=== PATIENT | female | born 1955 | race Two or more races ===

== ENCOUNTER 2017-10-22 07:50 | Emergency (ER) | payer MEDICAID ==
[~2017-10-22] VITALS: Ht 149.9 cm; Wt 64.9 kg
[2017-10-22] MEDS ORDERED: SODIUM CHLORIDE 0.9% 1,000 ML IV ONE (08:32)
[2017-10-22] MEDS ORDERED: PROMETHAZINE HCL 25 MG/ML 1ML ONE (08:43)
[2017-10-22] MEDS ORDERED: PROMETHAZINE HCL 25 MG/ML 1ML IV PRN (08:45)
[2017-10-22] MEDS ORDERED: KETOROLAC TROMETH 30 MG/ML 1ML VIAL IV ONE (08:45)
[2017-10-22 08:50] LABS: Basophils # (auto) 0 uL; Basophils % (auto) 0.5 % (0.0-2.0); Eosinophils # (auto) 0 uL; Eosinophils % (auto) 0.8 % (0.0-7.0); Hematocrit 42.4 % (36.0-46.0); Hemoglobin 14.2 g/dL (12.2-16.2); Lymphocytes # (auto) 1.1 uL; Lymphocytes % (auto) 22.6 % (10.0-50.0); Mean Corpuscular Hemoglobin 29.6 pg (28.0-32.0); Mean Corpuscular Hgb Conc. 33.5 g/dL (32.0-36.0); Mean Corpuscular Volume 88.5 fL (80.0-100.0); Monocytes # (auto) 0.7 uL; Neutrophils # (auto) 2.9 uL; Neutrophils % (auto) 61.1 % (37.0-80.0); Nucleated Red Blood Cells % 0.2 %; Platelet Count (auto) 238 10^3/uL (140-450); Red Cell Distribution Width 13.2 % (11.8-14.3); White Blood Cell 4.8 10^3/uL (4.4-10.8)
[2017-10-22 09:03] LABS: Albumin 3.5 g/dL (3.4-5.0); Calcium 7.9 mg/dL (8.5-10.1); Magnesium 1.6 mg/dL (1.6-2.6)
[2017-10-22 09:12] LABS: Urine Bacteria NONE SEEN /hpf (None Seen); Urine Blood Negative /uL (Negative); Urine WBC 3 /hpf (0 - 5)
[2017-10-22 09:24] LABS: Total Protein 6.5 g/dL (6.4-8.2)
[2017-10-22 09:43] LABS: BUN/Creatinine Ratio 14.5
[2017-10-22] MEDS ORDERED: POTASSIUM CHL 20 Meq TABLET PO ONE (11:30)
[2017-10-22 12:00] VITALS: BP 125/75
== END 2017-10-22 12:02 | disposition home or self-care (01) ==
LOC: ER 07:50
DX: K76.0 Fatty (change of) liver, not elsewhere classified (principal); E03.9 Hypothyroidism, unspecified; E87.6 Hypokalemia; I10 Essential (primary) hypertension; E11.9 Type 2 diabetes mellitus without complications; R91.8 Other nonspecific abnormal finding of lung field
CPT/HCPCS: 36415; 71046; 74176; 80053; 81001; 83690; 83735; 84443; 85025; 96361; 96374; 96375; 99285; J1885; J2550; J7030

== ENCOUNTER 2018-01-08 21:36 | Inpatient (IN) | payer MEDICAID ==
[~2018-01-08] VITALS: Ht 149.9 cm; Wt 66.3 kg
[2018-01-08 22:36] LABS: Basophils # (auto) 0 uL; Basophils % (auto) 0.4 % (0.0-2.0); Eosinophils # (auto) 0 uL; Eosinophils % (auto) 0.2 % (0.0-7.0); Hematocrit 42.4 % (36.0-46.0); Hemoglobin 14.2 g/dL (12.2-16.2); Lymphocytes # (auto) 1.1 uL; Lymphocytes % (auto) 10.3 % (10.0-50.0); Mean Corpuscular Hemoglobin 29.2 pg (28.0-32.0); Mean Corpuscular Hgb Conc. 33.4 g/dL (32.0-36.0); Mean Corpuscular Volume 87.4 fL (80.0-100.0); Monocytes # (auto) 1.2 uL; Monocytes % (auto) 11.6 % (0.0-12.0); Neutrophils # (auto) 8.3 uL; Neutrophils % (auto) 77.5 % (37.0-80.0); Nucleated Red Blood Cells % 0.1 %; Platelet Count (auto) 270 10^3/uL (140-450); Red Blood Cells 4.85 10^6/uL (4.0-5.20); Red Cell Distribution Width 13.2 % (11.8-14.3); White Blood Cell 10.7 10^3/uL (4.4-10.8)
[2018-01-08 22:47] LABS: Urine Bacteria MANY /hpf (None Seen); Urine Blood Negative /uL (Negative); Urine Budding Yeast OCCASIONAL /hpf (None Seen); Urine Specific Gravity 1.034 (1.001-1.035); Urine WBC 74 /hpf (0 - 5); Urine WBC Clumps PRESENT /hpf (None Seen)
[2018-01-08 22:51] LABS: Alanine Aminotransferase 24 U/L (13-56); Albumin 3.3 g/dL (3.4-5.0); Anion Gap 10 (5-15); Aspartate Aminotransferase 23 U/L (15-37); BUN/Creatinine Ratio 12.1; Blood Urea Nitrogen 11 mg/dL (7-18); Calcium 8.9 mg/dL (8.5-10.1); Carbon Dioxide 25 mmol/L (21-32); Chloride 90 mmol/L (98-107); GFR African American 81 mL/min; GFR Non-African American 67 mL/min; Magnesium 2.3 mg/dL (1.6-2.6); Potassium 4.2 mmol/L (3.5-5.1); Sodium 125 mmol/L (136-145)
[2018-01-08 22:54] LABS: Bilirubin, Total 1.8 mg/dL (0.2-1.0)
[2018-01-08 22:56] LABS: Alkaline Phosphatase 205 U/L (45-117); Glucose 489 mg/dL (74-106)
[2018-01-08 23:21] LABS: INR 1.05 (0.9-1.15); Prothrombin Time 11.2 sec (9.27-12.13)
[2018-01-09] MEDS ORDERED: SODIUM CHLORIDE 0.9% 1,000 ML IV ONE (00:30)
[2018-01-09] MEDS ORDERED: InsuLIN REG 1unit/0.01ml Soln (100units/ml) SC ONE (02:15)
[2018-01-09] MEDS ORDERED: TEMAZEPAM 15 MG CAP PO PRN (03:00)
[2018-01-09] MEDS ORDERED: HYDROcodone-ACET 5/325MG TAB PO PRN (03:00)
[2018-01-09] MEDS ORDERED: cefTRIAXone 1GM/10ml IVPUSH 10 ML IV ONE (03:00)
[2018-01-09] MEDS ORDERED: DEXTROSE (50%) 50ML SYRG IV PRN (03:00)
[2018-01-09] MEDS ORDERED: SODIUM CHLORIDE 0.9% 1,000 ML IV SCH (04:00)
[2018-01-09] MEDS: ACCU-CHEK COMFORT CURVE STRIP VI SCH ×5 (04:00→20:08)
[2018-01-09] MEDS: cefTRIAXone 1GM/10ml IVPUSH 10 ML IV SCH (06:00)
[2018-01-09] MEDS: InsuLIN REG 1unit/0.01ml Soln (100units/ml) SC SCH ×5 (06:30→20:01)
[2018-01-09 09:00] VITALS: BP 129/64
[2018-01-09] MEDS: ACETAMINOPHEN 325 MG TAB PO PRN ×3 (09:37→18:48)
[2018-01-09] MEDS: FAMOTIDINE 20 MG TAB PO SCH ×2 (09:38→20:01)
[2018-01-09] MEDS: HCTZ 25 MG TAB PO SCH (09:38)
[2018-01-09] MEDS: ENOXAPARIN SOD 40 MG/0.4 ML SYRINGE SC SCH (09:38)
[2018-01-09] MEDS: SODIUM CHLORIDE 0.9% 1,000 ML IV SCH ×2 (09:45→16:25)
[2018-01-09 10:00] VITALS: BP 129/64
[2018-01-09 13:00] VITALS: BP 121/60
[2018-01-09] MEDS: ONDANSETRON HCL 4 MG/2 ML VIAL IV PRN ×2 (14:13→23:11)
[2018-01-09] MEDS ORDERED: METF-370 PO (15:33)
[2018-01-09] MEDS ORDERED: LEVO25TA6 PO (15:34)
[2018-01-09] MEDS ORDERED: INSLANTI SC (15:34)
[2018-01-09 16:30] VITALS: BP 137/76
[2018-01-09 22:00] VITALS: BP 139/72
[2018-01-10] MEDS: InsuLIN REG 1unit/0.01ml Soln (100units/ml) SC SCH ×5 (00:15→16:35)
[2018-01-10] MEDS: ACCU-CHEK COMFORT CURVE STRIP VI SCH ×5 (00:16→16:35)
[2018-01-10] MEDS: SODIUM CHLORIDE 0.9% 1,000 ML IV SCH ×3 (00:37→08:30)
[2018-01-10 04:55] VITALS: BP 128/76
[2018-01-10] MEDS: cefTRIAXone 1GM/10ml IVPUSH 10 ML IV SCH (05:05)
[2018-01-10 05:42] LABS: Basophils # (auto) 0 uL; Basophils % (auto) 0.6 % (0.0-2.0); Eosinophils # (auto) 0.1 uL; Eosinophils % (auto) 0.8 % (0.0-7.0); Hematocrit 36.7 % (36.0-46.0); Hemoglobin 12.4 g/dL (12.2-16.2); Lymphocytes # (auto) 1.7 uL; Lymphocytes % (auto) 25.9 % (10.0-50.0); Mean Corpuscular Hemoglobin 29.4 pg (28.0-32.0); Mean Corpuscular Hgb Conc. 33.9 g/dL (32.0-36.0); Mean Corpuscular Volume 86.9 fL (80.0-100.0); Monocytes # (auto) 0.9 uL; Monocytes % (auto) 13.7 % (0.0-12.0); Neutrophils # (auto) 3.9 uL; Platelet Count (auto) 273 10^3/uL (140-450); Red Blood Cells 4.22 10^6/uL (4.0-5.20); Red Cell Distribution Width 13.1 % (11.8-14.3); White Blood Cell 6.7 10^3/uL (4.4-10.8)
[2018-01-10 06:07] LABS: Potassium 4.1 mmol/L (3.5-5.1)
[2018-01-10 06:10] LABS: Albumin 2.4 g/dL (3.4-5.0); BUN/Creatinine Ratio 13.7
[2018-01-10 06:14] LABS: Bilirubin, Total 0.7 mg/dL (0.2-1.0); Total Protein 6.3 g/dL (6.4-8.2)
[2018-01-10] MEDS: FAMOTIDINE 20 MG TAB PO SCH (08:21)
[2018-01-10] MEDS: HCTZ 25 MG TAB PO SCH (08:24)
[2018-01-10] MEDS: ENOXAPARIN SOD 40 MG/0.4 ML SYRINGE SC SCH (08:25)
[2018-01-10 13:00] VITALS: BP 133/76
[2018-01-10] MEDS ORDERED: INSLANTI SC (14:21)
[2018-01-10] MEDS ORDERED: CIPR500S2 PO (14:22)
[2018-01-10] MEDS ORDERED: METF-370 PO (14:23)
== END 2018-01-10 16:35 | disposition home or self-care (01) | DRG 463 ==
LOC: ER 21:36 → OVERFLOW 21:37 → WEST WING 01-09 08:55
PROVIDERS: ADMIT Nurse Practitioner; ATTEND Internal Medicine
DX: N12 Tubulo-interstitial nephritis, not specified as acute or chronic (principal); E43 Unspecified severe protein-calorie malnutrition; E10.65 Type 1 diabetes mellitus with hyperglycemia; E87.1 Hypo-osmolality and hyponatremia; I10 Essential (primary) hypertension; Z90.49 Acquired absence of other specified parts of digestive tract; Z90.89 Acquired absence of other organs; Z68.29 Body mass index [BMI] 29.0-29.9, adult
CPT/HCPCS: 36415; 71045; 80053; 81001; 82962; 83036; 83735; 83880; 84443; 84484; 85025; 85610; 85730; 96361; 96372; 96374; J1815; J2405

== ENCOUNTER 2018-06-10 14:28 | Emergency (ER) | payer MEDICAID ==
[~2018-06-10] VITALS: Ht 147.3 cm; Wt 67.1 kg
[~2018-06-10 14:28] MED LIST: CIPR500S2 PO; INSLANTI SC; LEVO25TA6 PO; METF-370 PO
[2018-06-10 16:18] VITALS: BP 156/99
== END 2018-06-10 18:18 | disposition home or self-care (01) ==
LOC: ER 14:31
DX: R04.0 Epistaxis (principal); Z48.00 Encounter for change or removal of nonsurgical wound dressing; E11.9 Type 2 diabetes mellitus without complications; I10 Essential (primary) hypertension; E07.9 Disorder of thyroid, unspecified; Z79.4 Long term (current) use of insulin; Z91.018 Allergy to other foods; Z79.899 Other long term (current) drug therapy; Z90.49 Acquired absence of other specified parts of digestive tract

== ENCOUNTER 2018-06-12 12:59 | Emergency (ER) | payer MEDICAID ==
[~2018-06-12] VITALS: Ht 147.3 cm; Wt 67.1 kg
[2018-06-12] MEDS ORDERED: LORazepam 0.5 MG TAB PO ONE (13:30)
[2018-06-12 14:05] LABS: Basophils # (auto) 0 uL; Basophils % (auto) 0.7 % (0.0-2.0); Eosinophils # (auto) 0.1 uL; Eosinophils % (auto) 1.9 % (0.0-7.0); Hematocrit 40.6 % (36.0-46.0); Hemoglobin 13.2 g/dL (12.2-16.2); Lymphocytes % (auto) 32.5 % (10.0-50.0); Mean Corpuscular Hemoglobin 28.6 pg (28.0-32.0); Mean Corpuscular Hgb Conc. 32.6 g/dL (32.0-36.0); Mean Corpuscular Volume 87.5 fL (80.0-100.0); Monocytes # (auto) 0.4 uL; Monocytes % (auto) 6.4 % (0.0-12.0); Neutrophils # (auto) 3.6 uL; Neutrophils % (auto) 58.5 % (37.0-80.0); Platelet Count (auto) 326 10^3/uL (140-450); Red Blood Cells 4.64 10^6/uL (4.0-5.20); Red Cell Distribution Width 13.2 % (11.8-14.3); White Blood Cell 6.2 10^3/uL (4.4-10.8)
[2018-06-12 14:27] LABS: INR 1.03 (0.9-1.15); Partial Thromboplastin Time 25.2 sec (23.78-33.04)
[2018-06-12 14:31] LABS: Alanine Aminotransferase 25 U/L (13-56); Anion Gap 8 (5-15); Aspartate Aminotransferase 17 U/L (15-37); BUN/Creatinine Ratio 17.7; Blood Urea Nitrogen 11 mg/dL (7-18); Calcium 8.2 mg/dL (8.5-10.1); Carbon Dioxide 29 mmol/L (21-32); Chloride 100 mmol/L (98-107); GFR African American 126 mL/min; GFR Non-African American 104 mL/min; Glucose 214 mg/dL (74-106); Potassium 3.2 mmol/L (3.5-5.1); Sodium 137 mmol/L (136-145)
[2018-06-12 14:35] LABS: Alkaline Phosphatase 109 U/L (45-117); Bilirubin, Total 0.9 mg/dL (0.2-1.0); Total Protein 7.4 g/dL (6.4-8.2)
[2018-06-12] MEDS ORDERED: POTASSIUM EFFERVESENT TAB 25 MEQ PO ONE (17:15)
[2018-06-12] MEDS ORDERED: ASPirin 81 mg TAB PO ONE (17:15)
[2018-06-12 17:39] LABS: Urine Bacteria NONE SEEN /hpf (None Seen); Urine Blood Negative /uL (Negative); Urine Mucus FEW (None Seen); Urine WBC 19 /hpf (0 - 5)
[2018-06-12 17:47] LABS: Urine Amorphous Crystal FEW /hpf (None Seen)
[2018-06-12 18:15] VITALS: BP 148/69
== END 2018-06-12 18:44 | disposition home or self-care (01) ==
LOC: ER 12:59
DX: F41.9 Anxiety disorder, unspecified (principal); N39.0 Urinary tract infection, site not specified; E11.9 Type 2 diabetes mellitus without complications; I10 Essential (primary) hypertension; Z90.49 Acquired absence of other specified parts of digestive tract; Z91.018 Allergy to other foods
CPT/HCPCS: 36415; 71046; 80053; 81001; 83880; 84484; 85025; 85610; 85730